=== PATIENT | female | born 1975 | race Caucasian/White ===

== ENCOUNTER 2018-07-26 08:09 | Day surgery (SDC) | payer OTHER ==
[2018-07-25 10:12] VITALS: BMI 50.6
[2018-07-26] VITALS (19 sets, daily range): BP systolic 113–145; BP diastolic 60–90; PULSE 66–90; RESP 14–23; Ht 157.5 cm; Wt 131.5 kg
[~2018-07-26] VITALS: Ht 157.5 cm; Wt 131.5 kg
[~2018-07-26 08:09] MED LIST: SEVOFLURANE 15 MIN ONE
[2018-07-26] MEDS ORDERED: LABE100T7 PO (08:33)
--- NOTE | 2018-07-26 10:52 | PREAC ---
Date/Time of Note Date/Time of Note DATE: 07/26/18 TIME: 10:49 Anesthesia Eval and Record Evaluation Time Pre-Procedure Interview DATE: 07/26/18 TIME: 10:49 Age 43 Sex female NPO: 8 hrs Preoperative diagnosis Partial rotator cuff tear, acromioclavicular degenerative joint disease Planned procedure Operative arthroscopy, subacromial decompression, Jaja procedure, possible rotator cuff repair Past Medical History Past Medical History: Includes Cardio: HTN GI: Morbid obesity Surgery & Anesthesia Issues No known issue Meds Anticoagulation: No Beta Magnus within 24 hr: Yes Reported Medications Labetalol Hcl* (Labetalol Hcl*) 100 Mg Tablet, 100 MG PO BID, TAB 07/26/18 Current Medications Epinephrine (EPINEPHrine) ONCE ONCE ZFS ; Start 07/26/18 at 11:00; Stop 07/26/18 at 11:01 Meds reviewed: Yes Allergies Coded Allergies: No Known Allergy (Unverified , 07/26/18) Allergies Reviewed: Yes Labs/Studies Labs Reviewed: Reviewed by anesthesiologist test: Negative Pre-procedure Exam Last vitals Vital Signs Date Temp Pulse Resp B/P (MAP) Pulse Ox O2 O2 Flow FiO2 Time Delivery Rate 07/26/18 97.6 82 16 124/64 96 Room Air 09:02 (84) Airway: Adequate mouth opening Mallampati: Mallampati II Teeth: Normal Lung: Normal Heart: Normal ASA Physical Status ASA physical status: 3 Emergency: None Planned Anesthetic General/MAC: ETT Planned Pain Management Single shot nerve block, Parenteral pain med Pre-operative Attestations Prior to commencing anesthesia and surgery, the patient was re-evaluated, there was verification of: *The patient's identity *The results of appropriate recent lab work and preoperative vital signs *The above evaluation not changing prior to induction *Anesthetic plan, risk benefits, alternative and complications discussed with patient/family; questions answered; patient/family understands, accepts and wishes to proceed. ENMA RODRIGUEZ MD July 26, 2018 10:52
[2018-07-26] MEDS ORDERED: ROCURONIUM 50 MG INJ ONE ×2 (10:58→12:28)
[2018-07-26] MEDS ORDERED: LIDOCAINE 2% (SDV) 5 ML INJ ONE (10:58)
[2018-07-26] MEDS ORDERED: GLYCOPYRROLATE 0.4 MG INJ ONE ×3 (10:58→12:28)
[2018-07-26] MEDS ORDERED: PROPOFOL 20 ML ONE (10:58)
[2018-07-26] MEDS ORDERED: NEOSTIGMINE 3 MG/3 ML SYRINGE ONE ×2 (10:58→12:27)
[2018-07-26] MEDS ORDERED: ROPIVACAINE 0.5 % 30 ML VIAL ONE (10:58)
[2018-07-26] MEDS ORDERED: SUCCINYLCHOLINE CHLORIDE 100 MG/5 ML SYG IV ONE (10:58)
[2018-07-26] MEDS ORDERED: EPINEPHrine 1 MG/ML 30 ML INJ ZFS ONE (11:00)
[2018-07-26] MEDS ORDERED: MIDAZOLAM 1 MG/ML 2 ML INJ ONE (11:04)
[2018-07-26] MEDS ORDERED: ONDANSETRON 4 MG INJ IV PRN ×2 (11:30→14:00)
[2018-07-26] MEDS ORDERED: HYDROCODONE/APAP (5/325) TAB PO PRN ×2 (11:30)
[2018-07-26] MEDS ORDERED: FENTAnyl 50 MCG/ML VIAL ONE (12:02)
[2018-07-26] MEDS ORDERED: EPINEPHrine 1 MG/ML 30 ML INJ IRR ONE (12:15)
[2018-07-26] MEDS ORDERED: LABETALOL HCL 20MG INJ ONE (12:27)
[2018-07-26] MEDS ORDERED: METOCLOPRAMIDE 10 MG INJ ONE (12:27)
[2018-07-26] MEDS ORDERED: ONDANSETRON 4 MG INJ ONE (12:27)
[2018-07-26] MEDS ORDERED: CEFAZOLIN 1 GM INJ ONE (12:44)
[2018-07-26] MEDS ORDERED: BACITRACIN/POLYMYXIN 0.9 GM OINT TOP ONE (13:17)
--- NOTE | 2018-07-26 13:23 | SIPON ---
Date/Time of Note Date/Time of Note DATE: 07/26/18 TIME: 13:21 Operative Report Preoperative Diagnosis Left shoulder AC arthropathy Postoperative Diagnosis Left shoulder AC arthropathy Operation/Procedure Performed Left shoulder Arthroscopy, [facility] clint Surgeon Juliocesar Bowman signature line roofer assistant Ira Lopez MD Anesthesia: general, other Estimated blood loss: minimal Transfusion Required none Specimen none Grafts/Implants none Complications none IRA LOPEZ MD July 26, 2018 13:22
[2018-07-26] MEDS ORDERED: METOCLOPRAMIDE 10 MG INJ IV PRN (14:00)
[2018-07-26] MEDS ORDERED: FENTAnyl 50 MCG/ML VIAL IV PRN ×3 (14:00)
[2018-07-26] MEDS ORDERED: EPHEDrine 25 MG/5 ML SYG IV PRN (14:00)
[2018-07-26] MEDS ORDERED: LABETALOL HCL 20MG INJ IV PRN (14:00)
[2018-07-26] MEDS ORDERED: MIDAZOLAM 1 MG/ML 2 ML INJ IV PRN (14:00)
[2018-07-26] MEDS ORDERED: hydrALAzine 20 MG INJ IV PRN (14:00)
[2018-07-26] MEDS ORDERED: HYDROmorphONE 1 MG/5 ML IV SYRINGE IV PRN ×3 (14:00)
[2018-07-26] MEDS ORDERED: OXYCODONE/ACETAMINOPHEN (5/325) TAB PO PRN ×2 (14:00)
[2018-07-26] MEDS ORDERED: MEPERIDINE 25 MG INJ IV PRN (14:00)
[2018-07-26] MEDS ORDERED: DIPHENHYDRAMINE 50 MG INJ IV PRN (14:00)
--- NOTE | 2018-07-26 14:52 | PAC ---
Date/Time of Note Date/Time of Note DATE: 07/26/18 TIME: 14:52 Post-Anesthesia Notes Post-Anesthesia Note Last documented vital signs Vital Signs Date Temp Pulse Resp B/P (MAP) Pulse Ox O2 O2 Flow FiO2 Time Delivery Rate 07/26/18 66 14 138/68 99 Room Air 14:29 (91) 07/26/18 2.0 13:54 07/26/18 97.9 13:32 Activity: WNL Respiratory function: WNL Cardiovascular function: WNL Mental status: Baseline Pain reasonably controlled: Yes Hydration appropriate: Yes Nausea/Vomiting absent: Yes Comments BT: 97.9 ENMA RODRIGUEZ MD July 26, 2018 14:52
--- NOTE | 2018-07-30 14:10 | OPR ---
DATE OF OPERATION: 07/26/2018 PREOPERATIVE DIAGNOSES: 1. Left shoulder impingement syndrome. 2. Left acromioclavicular degenerative joint disease. 3. Rule out rotator cuff tear. POSTOPERATIVE DIAGNOSES: 1. Left shoulder impingement syndrome. 2. Left acromioclavicular degenerative joint disease. 3. No rotator cuff tear. OPERATION: 1. Left shoulder operative arthroscopy. 2. Subacromial decompression. 3. Distal clavicle excision. SURGEON: Jose Luis Ovalle MD PREFORMER [employer]: Dr. Coleman. ANESTHESIA: General and interscalene block. INDICATIONS: The patient was diagnosed with left shoulder impingement syndrome, failed conservative t reatment, and was indicated for the above procedures. The purpose, method, and alternative options of treatment, including no surgery, were discussed. The potential risks and complications of surgery, i ncluding the risk of anesthesia which includes heart attack, stroke, and ; the risk of infection , risk of injury to arteries, nerves, or tendons; the risk of breakage to the bone, risk of breakage of hardware within the bone, risk of loosening of hardware, risk of malpositioning of the bone, risk of nonhealing of the bone; all of which may require additional surgery, were explained, as well as th e possibility for the need of hardware removal in the future, the possibility of persistent pain, sti ffness, weakness, or recurrence of the problem despite adequate surgery, and the possibility of refle x sympathetic dystrophy. The patient understood the above and agreed to the above procedure. PROCEDURE: The patient was brought to the operating room and placed on the operating room table in th e supine position. After general and interscalene block was performed by Anesthesia and general anest hesia was administered by endotracheal intubation, the patient was placed in the decubitus position, left side down, left side up, on a kidney rest and beanbag with an axillary roll, and all bony promin ences were well padded. The patient's left arm was examined under anesthesia and found to have full range of motion without evidence of instability anteriorly, posteriorly, or inferiorly. The patient' s left arm was prepped and draped in the usual manner using Betadine gel and sterile towels, and hung to a Star sleeve in 15 pounds of traction with the arm at 45 degrees of abduction and 10 degrees of forward flexion. A posterior portal was established 2 cm distal and 2 cm medial to the posterolateral acromion and brought down using blunt dissection with a trocar, entering the posterior capsule. An a nterior portal was established using the Wissinger method. FINDINGS: The patient was seen to have a normal appearance of the biceps tendon with normal attachmen t biceps superior labrum, normal attachment superior labrum to the superior glenoid, posterior labrum and inferior recess. Glenoid articular surface was normal and the rotator cuff was seen to be compl etely intact with no partial tearing of the supraspinatus, infraspinatus or teres minor, normal bare humeral head, humeral head articular surface was normal. Anteriorly, the subscapularis tendon was in tact with normal inferior and normal middle and inferior glenohumeral ligaments anteriorly and normal anterior labrum. Visualization of anteriorly all similar findings were found and normal subscapular recess. The patient was placed in the bursoscopy position with the arm in 20 degrees of abduction and 15 poun ds of traction. The same anterior and posterior portals were used, and an additional lateral portal w as established 1 cm lateral to the midlateral acromion. The bursa was examined and seen to be inflame d and a partial bursectomy was performed using the 4.5 full-radius shaver and 4.0 acromionizer bur an d a radiofrequency wand. The rotator cuff was seen to be completely intact on the bursal side. Subacromial decompression was performed, beginning at the midacromion and working anteriorly, removin g minimal bone at the midacromion but eventually removing a total of approximately 5 mm of bone anter iorly. A smooth acromial surface was obtained. Care was taken to make sure that the bone was comple tely removed anterolaterally, as well as anteromedially. A full distal clavicle Jaja resection was performed, resecting approximately 10 mm of the distal e nd of the clavicle. Care was taken to make sure with good visualization that the entire distal clavic le was excised, preserving the distal clavicular ligaments. The wound was irrigated and closed with 3-0 nylon horizontal mattress sutures. A soft bulky dressing with a cold therapy pad was applied and an UltraSling. The estimated blood loss was negligible, and the wounds were clean. The sponge and instrument counts were correct. The patient tolerated the pro cedure well and was transferred to the recovery room in stable condition. Dictated By: JOSE LUIS FERGUSON/JONG Conf#: [id number] DID#: [id number]
== END 2018-07-26 15:57 | disposition home or self-care (01) ==
LOC: SDS 08:09
PROVIDERS: ATTEND Orthopaedic Surgery
DX: M25.812 Other specified joint disorders, left shoulder (principal); M19.012 Primary osteoarthritis, left shoulder; I10 Essential (primary) hypertension
CPT/HCPCS: 29824; 84703; J0171; J0690; J1170; J2175; J2250; J2405; J2710; J2765; J2795; J3010